=== PATIENT | female | born 1990 ===

== ENCOUNTER 2017-09-18 15:18 | Emergency (ER) | payer BC ==
[2017-09-18 16:04] LABS: #Basophils 0.1 thou/uL (0.0-0.2); #Eosinphils 0.1 thou/uL (0.0-0.7); #Lymphocytes 2.3 thou/uL (1.20-3.40); #Monocytes 0.5 thou/uL (0.11-0.59); #Neutrophils 5.2 thou/uL (1.40-6.50); %Basophils 1.2 % (0.0-1.0); %Eosinophils 0.8 % (0.0-10.0); %Lymphocytes 28.3 % (21.0-51.0); %Neutrophils 63.7 % (42.0-75.0); Hemoglobin 13.3 g/dL (12.0-16.0); Mean Corpuscular HGB CONC 34.5 g/dL (32.0-36.0); Mean Corpuscular Hemoglobin 29.5 pg (27.0-31.0); Mean Corpuscular Volume 85.6 fl (81.0-99.0); Mean Platelet Volume 8.7 fL (7.4-10.4); Platelet Count 195 thou/uL (130-400); RBC Distribution Width 10.6 % (11.5-14.5); Red Blood Cell (RBC) Count 4.52 mill/uL (4.20-5.40); White Blood Cell (WBC) Count 8.2 thou/uL (4.8-10.8)
--- NOTE | 2017-09-18 16:52 | ULT ---
PELVIC ULTRASOUND: 09/18/17 HISTORY: Vaginal bleeding. Positive test. Transabdominal and endovaginal ultrasound of pelvis performed. The uterus has a normal appearance. Th e uterine measurements recorded at 8.4 x 4.1 x 5.0 cm. The endometrium was upper normal measuring 8 t o 10 mm. No evidence of gestational sac. Both ovaries are identified and appear unremarkable. Color doppler with spectral analysis demonstrate s blood flow to both ovaries. No free fluid seen. IMPRESSION: Unremarkable. pelvic ultrasound. Intrauterine is not identified. Ectopic is not e xcluded. Recommend close followup with serial HCG levels. POS: [facility]
== END 2017-09-18 17:53 | disposition home or self-care (01) ==
LOC: SCSER 15:18
DX: O20.9 Hemorrhage in early pregnancy, unspecified (principal); Z3A.01 Less than 8 weeks gestation of pregnancy
CPT/HCPCS: 36415; 76856; 84702; 85025